=== PATIENT | female | born 1950 | race Caucasian/White ===

== ENCOUNTER 2017-06-03 20:30 | Emergency (ER) | payer OTHER, MEDICAID ==
[~2017-06-03] VITALS: Ht 182.9 cm; Wt 88.0 kg
[2017-06-03 20:34] VITALS: BP_SYST 155
[2017-06-03 22:46] LABS: BASOPHILS % (AUTO) 0.4 % (0.0-2.0); EOSINOPHILS # (AUTO) 0.3 K/uL (0.0-0.4); EOSINOPHILS % (AUTO) 4.2 % (0.0-4.0); HEMATOCRIT 45.3 % (36-48); HEMOGLOBIN 14.6 g/dL (12.0-16.0); LYMPHOCYTES # (AUTO) 1.8 K/uL (1.0-5.5); LYMPHOCYTES % (AUTO) 28.3 % (20.5-51.5); MEAN CORPUSCULAR HEMOGLOBIN 29 pg (27-31); MEAN CORPUSCULAR HGB CONC 32 % (32-36); MEAN CORPUSCULAR VOLUME 91 fL (79.0-98.0); MONOCYTES # (AUTO) 0.5 K/uL (0.0-1.0); MONOCYTES % (AUTO) 8.5 % (1.7-9.3); NEUTROPHILS # (AUTO) 3.8 K/uL (1.8-7.7); NEUTROPHILS % (AUTO) 58.6 % (40.0-70.0); PLATELET COUNT (AUTO) 250 K/uL (130-430); RED BLOOD CELL COUNT(AUTO) 4.97 MIL/uL (4.2-6.2); RED CELL DISTRIBUTION WIDTH 12.3 % (9.0-15.0); WHITE BLOOD COUNT (AUTO) 6.4 K/uL (4.8-10.8)
[2017-06-03 22:52] LABS: CALCIUM 9.1 mg/dL (8.4-11.0); CREATININE 0.95 mg/dL (0.55-1.30); POTASSIUM 3.1 mmol/L (3.5-5.1)
[2017-06-03 22:57] LABS: TOTAL BILIRUBIN 0.3 mg/dL (0.0-1.0)
[2017-06-04] MEDS ORDERED: POTASSIUM CHLORIDE 20 MEQ/PKT PACKET PO ONE (00:45)
[2017-06-04 01:08] VITALS: BP_SYST 134
== END 2017-06-04 01:08 | disposition home or self-care (01) ==
LOC: SED 20:30
DX: M94.0 Chondrocostal junction syndrome [Tietze] (principal); E87.6 Hypokalemia; Z88.5 Allergy status to narcotic agent; Z88.6 Allergy status to analgesic agent; Z96.89 Presence of other specified functional implants; Z90.49 Acquired absence of other specified parts of digestive tract
CPT/HCPCS: 36415; 71010; 80053; 83880; 84484; 85025; 93005; 99285

== ENCOUNTER 2018-08-25 19:39 | Emergency (ER) | payer MEDICARE, MEDICAID ==
[~2018-08-25 19:39] MED LIST: ASPI-1154 PO; CARV6.2554 PO; PRO40 PO; TOLT4CAP PO; TRAM50TA92 PO
[2018-08-25] MEDS ORDERED: CLOPIDOGREL BISULFATE 75 MG TABLET ONE (21:45)
[2018-08-26 13:52] LABS: HEMATOCRIT 42.8 % (36-48); HEMOGLOBIN 14.1 g/dL (12.0-16.0); MEAN CORPUSCULAR HEMOGLOBIN 29 pg (27-31); MEAN CORPUSCULAR HGB CONC 33 % (32-36); MEAN CORPUSCULAR VOLUME 89 fL (79.0-98.0); PLATELET COUNT (AUTO) 217 K/uL (130-430); RED BLOOD CELL COUNT(AUTO) 4.81 MIL/uL (4.2-6.2); RED CELL DISTRIBUTION WIDTH 12.3 % (9.0-15.0); WHITE BLOOD COUNT (AUTO) 6.6 K/uL (4.8-10.8)
[2018-08-26 13:53] LABS: BASOPHILS % (AUTO) 0.5 % (0.0-2.0); EOSINOPHILS # (AUTO) 0.3 K/uL (0.0-0.4); EOSINOPHILS % (AUTO) 3.8 % (0.0-4.0); LYMPHOCYTES # (AUTO) 1.6 K/uL (1.0-5.5); MONOCYTES # (AUTO) 0.6 K/uL (0.0-1.0); MONOCYTES % (AUTO) 8.5 % (1.7-9.3); NEUTROPHILS # (AUTO) 4.1 K/uL (1.8-7.7); NEUTROPHILS % (AUTO) 63.2 % (40.0-70.0)
[2018-08-26 13:56] LABS: ALBUMIN 3.6 g/dL (3.4-4.8); CALCIUM 9.2 mg/dL (8.4-11.0); CREATININE 0.85 mg/dL (0.55-1.30); POTASSIUM 3.5 mmol/L (3.5-5.1); TOTAL BILIRUBIN 0.4 mg/dL (0.0-1.0)
== END 2018-08-25 22:40 | disposition home or self-care (01) ==
LOC: SED 19:39
DX: R07.89 Other chest pain (principal); I11.0 Hypertensive heart disease with heart failure; I50.9 Heart failure, unspecified; J45.909 Unspecified asthma, uncomplicated; Z95.0 Presence of cardiac pacemaker
CPT/HCPCS: 36415; 80053; 84484; 85025; 93005; 99284

== ENCOUNTER 2024-01-06 18:31 | Inpatient (IN) | payer BC, MEDICAID ==
[~2024-01-06] VITALS: Ht 182.9 cm; Wt 93.6 kg
[~2024-01-06 18:31] MED LIST changes: -ASPI-1154 PO; +ASPI-1457 PO; +LIP20 PO; +OMEG1CAP75 PO; -TRAM50TA92 PO
[2024-01-06 18:56] VITALS: BP_SYST 125; PULSE 72; RESP 16; TEMP 97.8; O2SAT 95
[2024-01-06 20:29] LABS: BLOOD GAS BASE EXCESS 2.1 mmol/L (-3.0-3.0); BLOOD GAS HCO3 26.8 mmol/L (21.0-27.0); BLOOD GAS PCO2 41.9 mmHg (35.0-45.0); BLOOD GAS PH 7.423 (7.350-7.450); BLOOD GAS PO2 73.8 mmHg (75.0-100.0)
[2024-01-06 20:30] LABS: ABG O2 SAT% ESTIMATE 95.1 % (94.0-100.0)
[2024-01-06 20:39] LABS: BASOPHILS % (AUTO) 0.6 % (0.0-2.0); EOSINOPHILS # (AUTO) 0.3 K/uL (0.0-0.4); EOSINOPHILS % (AUTO) 4.1 % (0.0-4.0); HEMATOCRIT 37.2 % (36-48); LYMPHOCYTES # (AUTO) 1.9 K/uL (1.0-5.5); LYMPHOCYTES % (AUTO) 25.4 % (20.5-51.5); MEAN CORPUSCULAR HEMOGLOBIN 31 pg (27-31); MEAN CORPUSCULAR HGB CONC 35 % (32-36); MEAN CORPUSCULAR VOLUME 87 fL (79.0-98.0); MONOCYTES # (AUTO) 0.5 K/uL (0.0-1.0); MONOCYTES % (AUTO) 7.1 % (1.7-9.3); NEUTROPHILS # (AUTO) 4.6 K/uL (1.8-7.7); NEUTROPHILS % (AUTO) 62.8 % (40.0-70.0); PLATELET COUNT (AUTO) 231 K/uL (130-430); RED BLOOD CELL COUNT(AUTO) 4.28 MIL/uL (4.2-6.2); RED CELL DISTRIBUTION WIDTH 14.2 % (9.0-15.0); WHITE BLOOD COUNT (AUTO) 7.4 K/uL (4.8-10.8)
[2024-01-06] MEDS: ASPIRIN 81 MG TAB.CHEW PO ONE (20:39)
[2024-01-06 20:54] LABS: ANION GAP 10 (5-15); CALCIUM 8.6 mg/dL (8.4-11.0); CARBON DIOXIDE 28 mmol/L (23-29); CHLORIDE 107 mmol/L (98-107); CREATININE 1.28 mg/dL (0.55-1.30); GLUCOSE 128 mg/dL (74-106); POTASSIUM 3.3 mmol/L (3.5-5.1); SODIUM SERUM 145 mmol/L (136-145); UREA NITROGEN, BLOOD 21 mg/dL (8-21)
[2024-01-06] MEDS: NACL 0.9% 1,000 ML IV ONE (22:28)
[2024-01-07] VITALS (10 sets, daily range): BP systolic 125–150; PULSE 54–78; RESP 15–18; TEMP 97.1–98.4; O2SAT 95–100
[2024-01-07] MEDS: POTASSIUM CHLORIDE 20 MEQ TABLET.ER PO ONE (02:48)
[2024-01-07] MEDS ORDERED: ONDANSETRON HCL 4 MG/2 ML VIAL IVP PRN (08:45)
[2024-01-07] MEDS ORDERED: DOCUSATE SODIUM 100 MG CAPSULE PO PRN (08:45)
[2024-01-07] MEDS ORDERED: IPRATROPIUM/ALBUTEROL SULFATE 3 ML AMPUL.NEB (DUONEB) INH PRN (08:45)
[2024-01-07] MEDS ORDERED: MAGNESIUM SULFATE 50 ML IV PRN (08:45)
[2024-01-07] MEDS ORDERED: ZOLPIDEM TARTRATE 5 MG TABLET PO PRN (08:45)
[2024-01-07] MEDS ORDERED: MUPIROCIN 2% TOPICAL OINTMENT 22 GM NS PRN (08:45)
[2024-01-07] MEDS ORDERED: LORazepam 2 MG/ML VIAL IVP PRN (08:45)
[2024-01-07] MEDS ORDERED: POTASSIUM CHLORIDE 20 MEQ TABLET.ER PO PRN (08:45)
[2024-01-07] MEDS ORDERED: TOLTERODINE TARTRATE ER 2 MG CAP.ER.24H PO SCH (09:00)
[2024-01-07] MEDS: CARVEDILOL 6.25 MG TABLET (COREG) PO SCH (09:27)
[2024-01-07] MEDS: ASPIRIN 81 MG TABLET(ECOTRIN) PO SCH (09:27)
[2024-01-07] MEDS: oxyBUTYnin chloride 5 MG TABLET PO SCH (09:28)
[2024-01-07] MEDS: PANTOPRAZOLE SODIUM 40 MG TAB PO SCH (09:28)
[2024-01-07] MEDS: HEPARIN SODIUM,PORCINE 5,000 UNITS/ML VIAL SUBCUT SCH (09:29)
[2024-01-07] MEDS: AZITHROMYCIN 500 MG in NS 250 ML IV SCH (18:00)
[2024-01-07] MEDS: methylPREDNISolone SOD SUCC/PF 62.5 MG/ML VIAL IVP ONE (18:27)
[2024-01-07] MEDS: methylPREDNISolone SOD SUCC/PF 62.5 MG/ML VIAL IVP SCH (22:13)
[2024-01-07] MEDS: ATORVASTATIN 20 MG TABLET PO SCH (22:19)
[2024-01-08] MEDS: AZITHROMYCIN 250 MG TABLET PO SCH (00:37)
[2024-01-08 02:08] VITALS: BP_SYST 139; PULSE 60; RESP 18; TEMP 98.1; O2SAT 96
[2024-01-08 04:53] LABS: BASOPHILS % (AUTO) 0.3 % (0.0-2.0); HEMATOCRIT 40.7 % (36-48); HEMOGLOBIN 13.7 g/dL (12.0-16.0); LYMPHOCYTES # (AUTO) 0.9 K/uL (1.0-5.5); LYMPHOCYTES % (AUTO) 20.1 % (20.5-51.5); MEAN CORPUSCULAR HEMOGLOBIN 29 pg (27-31); MEAN CORPUSCULAR HGB CONC 34 % (32-36); MEAN CORPUSCULAR VOLUME 87 fL (79.0-98.0); MONOCYTES % (AUTO) 0.7 % (1.7-9.3); NEUTROPHILS # (AUTO) 3.6 K/uL (1.8-7.7); NEUTROPHILS % (AUTO) 78.9 % (40.0-70.0); PLATELET COUNT (AUTO) 224 K/uL (130-430); RED BLOOD CELL COUNT(AUTO) 4.67 MIL/uL (4.2-6.2); RED CELL DISTRIBUTION WIDTH 13.8 % (9.0-15.0); WHITE BLOOD COUNT (AUTO) 4.6 K/uL (4.8-10.8)
[2024-01-08 05:09] LABS: ANION GAP 10 (5-15); CALCIUM 9.1 mg/dL (8.4-11.0); CARBON DIOXIDE 26 mmol/L (23-29); CHLORIDE 109 mmol/L (98-107); CREATININE 1.21 mg/dL (0.55-1.30); GLUCOSE 217 mg/dL (74-106); POTASSIUM 3.5 mmol/L (3.5-5.1); SODIUM SERUM 145 mmol/L (136-145); UREA NITROGEN, BLOOD 15 mg/dL (8-21)
[2024-01-08 08:00] VITALS: O2SAT 99
[2024-01-08 08:01] VITALS: BP_SYST 140; PULSE 70; RESP 18; TEMP 97.6; O2SAT 99
[2024-01-08 11:02] VITALS: BP_SYST 146; PULSE 66; RESP 18; TEMP 97.9; O2SAT 95
[2024-01-08] MEDS ORDERED: ALBMDI INH (11:42)
[2024-01-08 12:11] VITALS: BP_SYST 125; PULSE 78; RESP 18; TEMP 98.6; O2SAT 99
== END 2024-01-08 13:15 | disposition home or self-care (01) | DRG 203 ==
LOC: SED 18:31 → SMU 22:07 → OBSVTOIN 01-07 12:57
PROVIDERS: ADMIT General Practice; ATTEND General Practice
DX: J40 Bronchitis, not specified as acute or chronic (principal); E66.9 Obesity, unspecified; E87.6 Hypokalemia; I25.10 Atherosclerotic heart disease of native coronary artery without angina pectoris; I11.9 Hypertensive heart disease without heart failure; K21.9 Gastro-esophageal reflux disease without esophagitis; E78.5 Hyperlipidemia, unspecified; N32.81 Overactive bladder; Z87.891 Personal history of nicotine dependence; Z95.0 Presence of cardiac pacemaker; Z79.899 Other long term (current) drug therapy; Z88.0 Allergy status to penicillin; Z88.5 Allergy status to narcotic agent; Z88.8 Allergy status to other drugs, medicaments and biological substances; Z68.28 Body mass index [BMI] 28.0-28.9, adult; Z79.82 Long term (current) use of aspirin; Z95.5 Presence of coronary angioplasty implant and graft; R06.03 Acute respiratory distress
CPT/HCPCS: 36415; 36600; 71045; 71250-TC; 80048; 82803; 83037; 83735; 83880; 84443; 84484; 85025; 85379; 93005; 94760; 96361; 99285; G0378; J0456; J1644; J2930; J7050; Q0144